=== PATIENT | female | born 1960 | race Caucasian/White ===

== ENCOUNTER 2017-10-23 23:23 | Emergency (ER) | payer OTHER ==
[~2017-10-23] VITALS: Ht 175.3 cm; Wt 62.9 kg
[~2017-10-23 23:23] MED LIST: NOHOMEMEDS
[2017-10-24 02:45] LABS: APPEARANCE CLEAR ((CLEAR)); BILIRUBIN NEGATIVE; BLOOD LARGE; COLOR YELLOW ((YELLOW)); GLUCOSE (STRIP) NEGATIVE; KETONES NEGATIVE; LEUKOCYTES NEGATIVE; NITRITE NEGATIVE; PROTEIN (STRIP) NEGATIVE; SPECIFIC GRAVITY 1.005 (1.000-1.030)
[2017-10-24 02:50] LABS: BACTERIA NONE SEEN /HPF; EPITHELIAL CELLS RARE /HPF; MUCUS NONE SEEN /LPF; RED BLOOD CELLS 20-30 /HPF (0-5); UCUL ADDED? NO; WHITE BLOOD CELLS 0-5 /HPF (0-5)
[2017-10-24 03:30] LABS: HEMATOCRIT 42.4 % (36.0-46.0); HEMOGLOBIN 14.8 G/DL (11.9-15.5); MCH 31.8 PG (29.0-34.0); MCHC 34.9 G/DL (30.0-36.0); MCV 91.2 FL (83-99); PLATELET COUNT 195 K/uL (156-360); RBC DIS.WIDTH-CV 12.2 % (11.8-14.6); RBC DIS.WIDTH-SD 40.9 % (39-53); RED BLOOD COUNT 4.65 M/uL (3.80-5.20); WHITE BLOOD COUNT 8.8 K/uL (4.1-10.2)
[2017-10-24 03:39] LABS: ALBUMIN 3.7 g/dL (3.2-4.8)
[2017-10-24 03:40] LABS: CHLORIDE 106 mEq/L (99-109); POTASSIUM 3.5 mEq/L (3.7-5.4); SODIUM 139 mEq/L (136-147)
[2017-10-24 03:42] LABS: GLUCOSE 104 mg/dL (70-99); TOTAL PROTEIN 6.7 g/dL (6.4-8.3)
[2017-10-24 03:44] LABS: TOTAL BILIRUBIN 0.6 mg/dL (0.0-1.0)
[2017-10-24 03:45] LABS: ALKALINE PHOSPHATASE 110 IU/L (3-129)
[2017-10-24 03:46] LABS: CREATININE 0.8 mg/dL (0.6-1.3); GFR ESTIMATE (CALCULATED) > 59 mL/min/
[2017-10-24 03:47] LABS: AST (GOT) 16 IU/L (2-34); UREA NITROGEN (BUN) 5 mg/dL (9-23)
[2017-10-24 03:48] LABS: ALT (GPT) 12 IU/L (3-49)
[2017-10-24] MEDS ORDERED: PERCOCET 5/31 TABLET PO (04:02)
[2017-10-24] MEDS ORDERED: VALIUM5 MG PO (04:02)
[2017-10-24 04:11] VITALS: BP 153/85
== END 2017-10-24 04:11 | disposition home or self-care (01) ==
LOC: EXP 23:23 → EME 23:23 → EXP 10-24 04:11
PROVIDERS: Physician Assistant
DX: R10.9 Unspecified abdominal pain (principal); R31.29 Other microscopic hematuria; R91.1 Solitary pulmonary nodule; R93.5 Abnormal findings on diagnostic imaging of other abdominal regions, including retroperitoneum; F17.200 Nicotine dependence, unspecified, uncomplicated
CPT/HCPCS: 74176; 80053; 81003; 85027; 99281; 99284